=== PATIENT | male | born 1955 | race Caucasian/White ===

== ENCOUNTER 2019-02-11 10:42 | Emergency (ER) | payer MEDICAID ==
[~2019-02-11] VITALS: Ht 170.2 cm; Wt 74.8 kg
[2019-02-11 10:42] VITALS: BP_SYST 110
[2019-02-11] MEDS ORDERED: PREDNISONE 20 MG TABLET PO ONE (13:00)
[2019-02-11] MEDS ORDERED: IPRATROPIUM BROM 0.5 MG/2.5 ML VIAL.NEB (ATROVENT) INH ONE (13:00)
[2019-02-11] MEDS ORDERED: ALBUTEROL SULFATE 0.083% 2.5 MG/3 ML VIAL.NEB INH ONE (13:00)
[2019-02-11 13:39] VITALS: BP_SYST 134
== END 2019-02-11 13:38 | disposition home or self-care (01) ==
LOC: SED 10:42
DX: J20.9 Acute bronchitis, unspecified (principal)
CPT/HCPCS: 94640; 99284; J7512